=== PATIENT | male | born 1985 | race Caucasian/White ===

== ENCOUNTER 2018-05-22 22:29 | Emergency (ER) | payer BC, MEDICAID ==
[~2018-05-22] VITALS: Ht 182.9 cm; Wt 86.2 kg
[2018-05-22 22:32] VITALS: BP_SYST 148
--- NOTE | 2018-05-22 22:32 | NUR ---
Note vikash in EDM - 05/23/18 at 0532 by [email or web address] Patient is alert and oriented to person, place, time, and purpose of ER visit. Patient was ambulatory to the ER bed. Paramedics state the patient "swallowed approximately 50-100 mL of bleach" approximately 20 minutes prior to ER visit. Patient denies nausea, vomiting, diarrhea, and abdominal pain at this time. Patient denies chest pain and shortness of breath at this time. Patient stated "I was frustrated and I drank the bleach when I was arguing with my ". Patient denies any other complaints.
--- NOTE | 2018-05-22 22:35 | NUR ---
Placed in room 1 . Placed on senior genetic counselor, blood pressure machine and pulse oximeter. To gown for exam. Side rails up.
--- NOTE | 2018-05-22 22:35 | NUR ---
Called Poison Control at [phone] and spoke with Juan. Per recommendations: Supportive tx, CBC, CMP, Coingestion panel for ASA and Tylenol, Vomiting, NPO/H20 fluid challenge recommended. Dr. Thompson notified. Will continue to monitor patient.
--- NOTE | 2018-05-22 22:36 | NUR ---
custody officer at bedside
--- NOTE | 2018-05-22 22:37 | NUR ---
PRATIK Thompson at bedside examining patient.
--- NOTE | 2018-05-22 22:50 | NUR ---
Patient is calmly resting in ER bed, no signs of distress noted. Vital signs are within therapeutic range. Patient has a complaint of headache with pain scale 3/10 at this time with no dizziness or visual difficulty. MD notified.
[2018-05-22] MEDS ORDERED: ONDANSETRON HCL 4 MG/2 ML VIAL IVP ONE (23:00)
[2018-05-22] MEDS ORDERED: NACL 0.9% 1,000 ML IV ONE (23:00)
[2018-05-22 23:02] LABS: BASOPHILS # (AUTO) 0.1 K/uL (0.0-0.2); BASOPHILS % (AUTO) 0.7 % (0.0-2.0); EOSINOPHILS # (AUTO) 0.1 K/uL (0.0-0.4); EOSINOPHILS % (AUTO) 1.6 % (0.0-4.0); HEMATOCRIT 44.4 % (36-54); HEMOGLOBIN 15.8 g/dL (14.0-18.0); LYMPHOCYTES # (AUTO) 2.4 K/uL (1.0-5.5); MEAN CORPUSCULAR HEMOGLOBIN 30 pg (27-31); MEAN CORPUSCULAR HGB CONC 36 % (32-36); MEAN CORPUSCULAR VOLUME 85 fL (79.0-98.0); MONOCYTES # (AUTO) 0.8 K/uL (0.0-1.0); MONOCYTES % (AUTO) 9.6 % (1.7-9.3); NEUTROPHILS # (AUTO) 4.5 K/uL (1.8-7.7); NEUTROPHILS % (AUTO) 58.1 % (40.0-70.0); PLATELET COUNT (AUTO) 330 K/uL (130-430); RED CELL DISTRIBUTION WIDTH 12.3 % (9.0-15.0); WHITE BLOOD COUNT (AUTO) 7.9 K/uL (4.8-10.8)
[2018-05-22 23:03] LABS: ANION GAP 9 (5-15); CALCIUM 9.3 mg/dL (8.4-11.0); CHLORIDE 103 mmol/L (98-107); CREATININE 1.21 mg/dL (0.55-1.30); GLUCOSE 110 mg/dL (70-99); POTASSIUM 3.3 mmol/L (3.5-5.1); SODIUM SERUM 138 mmol/L (136-145); UREA NITROGEN, BLOOD 16 mg/dL (8-21)
[2018-05-22 23:04] LABS: GFR AFRICAN AMERICAN 89 mL/min (>90)
--- NOTE | 2018-05-22 23:05 | NUR ---
Patient is calmly resting in ER bed, no signs of distress noted. Vital signs are within therpaeutic range. Symmetric rise and fall of chest noted.
[2018-05-22 23:09] LABS: ALANINE AMINOTRANSFERASE 60 U/L (12-78); ALBUMIN 4.2 g/dL (3.4-4.8); ASPARTATE AMINOTRANSFERASE 24 U/L (10-37); TOTAL BILIRUBIN 0.5 mg/dL (0.0-1.0)
[2018-05-22 23:13] LABS: ACETAMINOPHEN < 1 ug/mL (1-30)
--- NOTE | 2018-05-22 23:20 | NUR ---
Patient is calmly resting in ER bed, no signs of distress noted. Vital signs are within therpaeutic range. Symmetric rise and fall of chest noted.
[2018-05-22] MEDS ORDERED: POTASSIUM CHLORIDE 20 MEQ/PKT PACKET PO ONE (23:30)
--- NOTE | 2018-05-22 23:30 | NUR ---
Patient is ambulatory to the restroom. Patient has a steady gait and denies dizziness at this time.
--- NOTE | 2018-05-22 23:35 | NUR ---
Patient is calmly resting in ER bed, no signs of distress noted. Vital signs are within therpaeutic range. Symmetric rise and fall of chest noted.
[2018-05-22 23:48] LABS: BILIRUBIN,URINE NEGATIVE (NEGATIVE); BLOOD, URINE NEGATIVE (NEGATIVE); CLARITY/URINE CLEAR (CLEAR); COLOR,URINE YELLOW (YELLOW); GLUCOSE,URINE NEGATIVE (NEGATIVE); KETONES,URINE NEGATIVE (NEGATIVE); LEUKOCYTE ESTERASE ,URINE NEGATIVE (NEGATIVE); NITRITE, URINE NEGATIVE (NEGATIVE); PROTEIN URINE NEGATIVE (NEGATIVE); UROBILINOGEN,URINE 0.2 (0.2-1.0)
--- NOTE | 2018-05-22 23:49 | NUR ---
Sitter is at bedside with the patient.
--- NOTE | 2018-05-22 23:50 | NUR ---
Patient is calmly resting in ER bed, no signs of distress noted. Vital signs are within therpaeutic range. Symmetric rise and fall of chest noted.
[2018-05-23] MEDS ORDERED: KETOROLAC TROMETHAMINE 15 MG VIAL IVP ONE
--- NOTE | 2018-05-23 | NUR ---
Patient is calmly resting in ER bed, no signs of distress noted. Vital signs are within therpaeutic range. Symmetric rise and fall of chest noted. Administered pain madication as ordered by MD Dr. Thompson. No immediate adverse effects noted.
[2018-05-23 00:11] LABS: BARBITURATE, URINE NEGATIVE (NEG <=200); BENZODIAZEPINE, URINE NEGATIVE (NEG <=150); CANNABINOID, URINE NEGATIVE (NEG <=50); COCAINE, URINE NEGATIVE (NEG <=150); METHAMPHETAMINES SCREEN,URINE NEGATIVE (NEG <=500); OPIATE, URINE NEGATIVE (NEG <=100); PHENCYCLIDINE SCREEN,URINE NEGATIVE (NEG <=25); UR TRICYCLIC ANTIDEPRESSANTS NEGATIVE (NEG <=300); URINE AMPHETAMINE NEGATIVE (NEG <=500); URINE METHADONE NEGATIVE (NEG <=200); URINE OXYCODONE SCREEN NEGATIVE (NEG <=100); URINE PROPOXYPHENE SCREEN NEGATIVE (NEG <=300)
--- NOTE | 2018-05-23 00:15 | NUR ---
Patient is calmly resting in ER bed, no signs of distress noted. Vital signs are within therpaeutic range. Symmetric rise and fall of chest noted. Patient denies pain at this time.
--- NOTE | 2018-05-23 00:30 | NUR ---
Patient is calmly resting in ER bed, no signs of distress noted. Vital signs are within therpaeutic range. Symmetric rise and fall of chest noted.
--- NOTE | 2018-05-23 00:57 | NUR ---
PATIENT: PATIENT IS SLEEPING AT THIS MOMENT HE IS CALM.
--- NOTE | 2018-05-23 00:59 | NUR ---
Patient is calmly resting in ER bed, no signs of distress noted. Vital signs are within therpaeutic range. Symmetric rise and fall of chest noted.
--- NOTE | 2018-05-23 01:15 | NUR ---
PATIENT RESTING PEACEFULLY RN GAVE MEDICATION A WHILE AGO NO SIGNS OF AGITATION AT THIS MOMENT.
--- NOTE | 2018-05-23 01:15 | NUR ---
Patient is calmly resting in ER bed, no signs of distress noted. Vital signs are within therpaeutic range. Symmetric rise and fall of chest noted.
--- NOTE | 2018-05-23 01:30 | NUR ---
PATIENT: PATIENT RESTING IN BED AT THIS MOMENT RN JUST LEFT THIS ROOM, PATIENT IS VERY CALM
--- NOTE | 2018-05-23 01:30 | NUR ---
Patient is calmly resting in ER bed, no signs of distress noted. Vital signs are within therpaeutic range. Symmetric rise and fall of chest noted.
--- NOTE | 2018-05-23 01:45 | NUR ---
Patient is sleeping in ER bed, no signs of distress noted. Vital signs are within therpaeutic range. Symmetric rise and fall of chest noted.
--- NOTE | 2018-05-23 02:00 | NUR ---
Patient moved to ER bed 6 via gurney. Patient denies pain and denies any complaints at this time.
--- NOTE | 2018-05-23 02:00 | NUR ---
PATIENT PATIENT CONTINUE SLEEPING
--- NOTE | 2018-05-23 02:15 | NUR ---
Patient is sleeping in ER bed, no signs of distress noted. Vital signs are within therapeutic range.
--- NOTE | 2018-05-23 02:15 | NUR ---
PATIENT PT SLEEPING PEACEFULLY,
--- NOTE | 2018-05-23 02:30 | NUR ---
PATIENT PT IS NOW IN BED NUMBER SIX HE IS SLEEPING PEACEFULLY
--- NOTE | 2018-05-23 02:30 | NUR ---
Patient sleeping in ER bed, symmetric and steady rise and fall of chest noted. Vital signs are within therapeutic range. Sitter is at bedside.
--- NOTE | 2018-05-23 02:45 | NUR ---
PATIENT PT SLEEPING AT THIS MOMENT HE IS CALM, NO DISTRESS AT THIS MOMENT.
--- NOTE | 2018-05-23 03:00 | NUR ---
Patient sleeping quietly in [facility], no signs of distress noted. Vital signs are within therapeutic range.
--- NOTE | 2018-05-23 03:00 | NUR ---
PATIENT PT STILL SLEEPING
--- NOTE | 2018-05-23 03:15 | NUR ---
PATIENT PT IN A DEEP SLEEP, HE SHOW NO DISTRESS.
--- NOTE | 2018-05-23 03:15 | NUR ---
Patient is sleeping quietly. Symmetric rise and fall of chest noted. Vital signs are within therapeutic range.
--- NOTE | 2018-05-23 03:30 | NUR ---
PATIENT. PT SLEEPING PEACEFULLY V/S AT NORMAL
--- NOTE | 2018-05-23 03:30 | NUR ---
Patient is sleeping quietly in ER bed, no signs of distress noted. Symmetric rise and fall of chest noted.
--- NOTE | 2018-05-23 03:45 | NUR ---
Patient is sleeping quietly in ER bed, no signs of distress noted. Symmetric rise and fall of chest noted.
--- NOTE | 2018-05-23 03:45 | NUR ---
PATIENT PT SLEEPING HE LOOKS CALM AND PEACEFUL
--- NOTE | 2018-05-23 04:00 | NUR ---
Patient is sleeping quietly in ER bed, no signs of distress noted. Symmetric rise and fall of chest noted.
--- NOTE | 2018-05-23 04:00 | NUR ---
PATIENT PT JUST OPENED HIS EYE. HE SWITCHED POSITION HE IS BACK TO SLEEP.
--- NOTE | 2018-05-23 04:15 | NUR ---
PATIENT PT WOKE UP. I ASKED IF HE NEEDS SOMENTING HE SAID THAT HE IS FINE. WENT BACK TO SLEEP.
--- NOTE | 2018-05-23 04:15 | NUR ---
Patient is sleeping quietly in ER bed, no signs of distress noted. Symmetric rise and fall of chest noted.
--- NOTE | 2018-05-23 04:30 | NUR ---
Patient is calmly sleeping in ER bed, no signs of distress noted at this time. Symmetric rise and fall of chest noted.
--- NOTE | 2018-05-23 04:30 | NUR ---
PATIENT PT WOKE UP AGAIN TO CHANGED POSITION HE TURNED TO HIS RIGH SIDE. BACK TO SLEEP.
--- NOTE | 2018-05-23 04:45 | NUR ---
Patient is sleeping quietly in ER bed, no signs of distress noted. Symmetric rise and fall of chest noted.
--- NOTE | 2018-05-23 04:45 | NUR ---
PATIENT PT STILL IN A DEEP SLEEP.
--- NOTE | 2018-05-23 05:00 | NUR ---
PATIENT PT OPENED HIS EYE MOVED SWITCHED POSITION
--- NOTE | 2018-05-23 05:00 | NUR ---
Patient is sleeping quietly in ER bed, no signs of distress noted. Symmetric rise and fall of chest noted.
--- NOTE | 2018-05-23 05:15 | NUR ---
Patient is sleeping quietly in ER bed, no signs of distress noted. Symmetric rise and fall of chest noted.
--- NOTE | 2018-05-23 05:15 | NUR ---
PATIENT PT. SLEEPING PEACEFULLY NO DISTRESS AT THIS MOMENT
--- NOTE | 2018-05-23 05:30 | NUR ---
PATIENT PT SLEEPING NO SIGN OF ANY DISTRESS
--- NOTE | 2018-05-23 05:30 | NUR ---
Patient is sleeping quietly in ER bed, no signs of distress noted. Symmetric rise and fall of chest noted. Vital signs are within therapeutic range.
--- NOTE | 2018-05-23 05:40 | NUR ---
PATIENT PT SLEEPING HE HAS NOT WAKE UP FOR A WHILE.
--- NOTE | 2018-05-23 05:45 | NUR ---
Patient is sleeping quietly in ER bed, no signs of distress noted. Symmetric rise and fall of chest noted. Vital signs are within therapeutic range.
--- NOTE | 2018-05-23 06:00 | NUR ---
Patient is awake and resting quietly in ER bed. Patient denies any complaints at this time.
--- NOTE | 2018-05-23 06:00 | NUR ---
PATIENT PT WOKE UP TO SWITCHED SIDE NOW BACK TO SLEEP
--- NOTE | 2018-05-23 06:05 | NUR ---
Day shift sitter is at bedside.
--- NOTE | 2018-05-23 06:15 | NUR ---
SITTER: PATIENT IS SLEEPING IN BED.
--- NOTE | 2018-05-23 06:15 | NUR ---
Patient is calmly resting in Er bed, no signs of distress noted. Vital signs are within therapeutic range.
--- NOTE | 2018-05-23 06:30 | NUR ---
Patient calmly resting in ER bed, symmetric rise and fall of chest noted.
--- NOTE | 2018-05-23 06:30 | NUR ---
SITTER: PATIENT IS SLEEPING IN BED.
--- NOTE | 2018-05-23 06:45 | NUR ---
SITTER: PATIENT IS SLEEPING IN BED.
--- NOTE | 2018-05-23 06:45 | NUR ---
Patient calmly resting in ER bed, symmetric rise and fall of chest noted.
--- NOTE | 2018-05-23 07:00 | NUR ---
Patient calmly resting in ER bed, no signs of distress noted. Vital signs are within therapeutic range. Report given to day shift RN for continued care.
--- NOTE | 2018-05-23 07:00 | NUR ---
SITTER: PATIENT IS SLEEPING IN BED.
--- NOTE | 2018-05-23 07:08 | NUR ---
security at bedside wanding patient.
--- NOTE | 2018-05-23 07:16 | NUR ---
SITTER: PATIENT WAS TALKING ON PERSONAL PHONE. PATIENT IS NOW RESTING IN BED. PATIENT IS AWARE THAT HIS BREAKFAST IS AT BEDSIDE.
--- NOTE | 2018-05-23 07:30 | NUR ---
SITTER: PATIENT IS SLEEPING IN BED.
--- NOTE | 2018-05-23 07:34 | NUR ---
Suicide Risk/lethality admission assesment completed and in chart.
--- NOTE | 2018-05-23 07:45 | NUR ---
Spoke with Alta from [facility] in [place], and will call back once paperwork is received and reviewed.
--- NOTE | 2018-05-23 07:45 | NUR ---
SITTER: PATIENT IS SLEEPING IN BED.
--- NOTE | 2018-05-23 08:00 | NUR ---
SITTER: PATIENT IS SLEEPING IN BED.
--- NOTE | 2018-05-23 08:15 | NUR ---
Pt is resting in bed with no noted distress or discomfort. Will continue to monitor.
--- NOTE | 2018-05-23 08:15 | NUR ---
SITTER: PATIENT IS TALKING ON THE PHONE.
--- NOTE | 2018-05-23 08:30 | NUR ---
SITTER: PATIENT ASKING WHEN HE WILL BE RELEASED & WANTS IV OUT. RN NOTIFIED.
--- NOTE | 2018-05-23 08:45 | NUR ---
SITTER: PATIENT IS AWAKE ON PHONE.
--- NOTE | 2018-05-23 09:00 | NUR ---
SITTER: PATIENT IS AWAKE ON PHONE.
--- NOTE | 2018-05-23 09:15 | NUR ---
SITTER: PATIENT IS RESTING IN BED ON PHONE.
--- NOTE | 2018-05-23 09:27 | NUR ---
Spoke with and gave an update. Pt resting comfortably in hospital bed. No acute distress. Will continue to monitor.
--- NOTE | 2018-05-23 09:30 | NUR ---
SITTER: PATIENT IS RESTING ON PHONE.
--- NOTE | 2018-05-23 09:41 | NUR ---
Spoke with Karo from [facility] in regards to placement. Karo states she will call back once they review patient's chart.
--- NOTE | 2018-05-23 09:45 | NUR ---
SITTER: PATIENT IS RESTING IN BED ON PHONE.
--- NOTE | 2018-05-23 10:00 | NUR ---
SITTER: PATIENT LAYING IN BED ON PHONE.
--- NOTE | 2018-05-23 10:15 | NUR ---
SITTER: PATIENT IS LAYING DOWN ON THE PHONE.
--- NOTE | 2018-05-23 10:30 | NUR ---
SITTER: PATIENT IS LAYING DOWN ON PHONE.
--- NOTE | 2018-05-23 10:45 | NUR ---
SITTER: PATIENT IS RESTING IN BED.
--- NOTE | 2018-05-23 11:00 | NUR ---
SITTER: PATIENT IS LAYING DOWN ON PHONE.
--- NOTE | 2018-05-23 11:15 | NUR ---
SITTER: PATIENT IS SPEAKING WITH FATHER AT BEDSIDE.
--- NOTE | 2018-05-23 11:19 | NUR ---
Karo called back and stated only concern was that patient had not had breakfast or any food since last night. Per Karo, criteria for their facility "pt has to eat at least 2 meals per [address]." Dr. Lam made aware.
--- NOTE | 2018-05-23 11:30 | NUR ---
SITTER: PATIENT IS SPEAKING WITH FAMILY MEMBER AT BEDSIDE.
--- NOTE | 2018-05-23 11:45 | NUR ---
SITTER: PATIENT IS SITTING UP & EATING LUNCH.
--- NOTE | 2018-05-23 12:00 | NUR ---
SITTER: PATIENT IS SITTING UP & EATING LUNCH. FAMILY MEMBER AT BEDSIDE.
--- NOTE | 2018-05-23 12:03 | NUR ---
Spoke with Olegario, from [facility] and gave report. Pt will be going to [facility]. Will continue to monitor.
--- NOTE | 2018-05-23 12:15 | NUR ---
SITTER: PATIENT IS RESTING ON BED ON PHONE. FAMILY MEMBER LEFT.
--- NOTE | 2018-05-23 12:27 | NUR ---
PT SLEEPING IN ROOM, NO ACUTE DISTRESS. WILL CONTINUE TO MONITOR.
--- NOTE | 2018-05-23 12:47 | NUR ---
PT SLEEPING IN BED, NO ACUTE DISTRESS. WILL CONTINUE TO MONITOR
--- NOTE | 2018-05-23 13:07 | NUR ---
PT IS USING THE RESTROOM AT THIS TIME
--- NOTE | 2018-05-23 13:20 | NUR ---
PT SITTING IN BED WITH MOTHER, NO ACUTE DISTRESS. WILL CONTINUE TO MONITOR
--- NOTE | 2018-05-23 13:23 | NUR ---
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
--- NOTE | 2018-05-23 13:33 | NUR ---
PT SITTING IN BED, TALKING TO FAMILY. NO ACUTE DISTRESS. WILL CONTINUE TO MONITOR
--- NOTE | 2018-05-23 13:44 | NUR ---
PT SITTING IN BED TALKING TO FAMILY, NO ACUTE DISTRESS. WILL CONTINUE TO MONITOR
--- NOTE | 2018-05-23 13:58 | NUR ---
PT IS CHANGING AT THIS TIME. GETTING READY TO TRANSPORT PATIENT.
[2018-05-23 14:05] VITALS: BP_SYST 125
--- NOTE | 2018-05-23 14:05 | NUR ---
Patient to be transferred to [facility]. Is being transferred due to higher level of care. Receiving facility has accepting physician and available space. ER physician has signed transfer form. Patient or responsible alliance party has agreed to transfer and signed form. Patient belongings inventoried and will be sent with patient. Copy of nursing notes, lab reports, EKG, Physicians Orders and X-rays to be sent with patient. Report called to [facility] at receiving facility. Receiving physician is Dr. Louise. [facility] ambulance service has been called for transfer. Vital signs are stable. IV was taken out per request of patient. Dr. Lam approved of discharging IV.
== END 2018-05-23 14:05 ==
LOC: SED 22:29
DX: T54.92XA Toxic effect of unspecified corrosive substance, intentional self-harm, initial encounter (principal); E87.6 Hypokalemia; R11.10 Vomiting, unspecified; R51 Headache; Y92.89 Other specified places as the place of occurrence of the external cause
CPT/HCPCS: 36415; 80053; 80307; 81003; 85025; 96361; 96374; 96375; 99285; G0480; G0481; G0482; J1885; J2405; J7030